=== PATIENT | male | born 2000 | race Caucasian/White ===

== ENCOUNTER 2025-06-09 13:55 | Emergency (ER) | payer OTHER ==
[~2025-06-09] VITALS: Ht 180.3 cm; Wt 80.0 kg
[2025-06-09 14:02] VITALS: O2SAT 99
[2025-06-09] MEDS: IBUPROFEN 600MG TABLET PO ONE (15:34)
[2025-06-09 15:42] LABS: BASOPHILS % 1.0 % (0.0-2.0); EOSINOPHILS % 1.7 % (0.0-5.0); HEMATOCRIT. 43.6 % (42.0-52.0); HEMOGLOBIN. 15.1 g/dL (14.0-18.0); LYMPHOCYTES % 26.7 % (20.0-50.0); MEAN PLATELET VOLUME 9.3 fl (7.4-10.4); MONOCYTES % 7.6 % (2.0-8.0); NEUTROPHILS % 63.0 % (40.0-76.0); PLATELET 246 x1000/uL (130-400); RED BLOOD CELL COUNT 5.08 mill/uL (4.7-6.1); RED CELL DISTRIBUTION WIDTH 13.2 % (11.6-14.6)
[2025-06-09 15:58] LABS: CREATININE 0.8 mg/dL (0.6-1.3); UREA NITROGEN BLOOD 7 mg/dL (9-23)
[2025-06-09] MEDS ORDERED: CLIN-194 MT (17:23)
[2025-06-09 17:40] VITALS: BP 119/72; PULSE 82; RESP 16; TEMP 36.7; O2SAT 100
[2025-06-09] MEDS ORDERED: IOHEXOL-300 100 ML BOTTLE ONE (23:29)
== END 2025-06-09 17:45 | disposition home or self-care (01) ==
LOC: ER 13:55
DX: L03.211 Cellulitis of face (principal); M60.9 Myositis, unspecified
CPT/HCPCS: 80048; 85025; 36415; 70487; 99285; Q9967; Z7610